=== PATIENT | female | born 2000 | race Caucasian/White ===

== ENCOUNTER 2025-01-19 15:12 | Outpatient (REF) | payer OTHER, SELFPAY ==
[2025-01-19 15:28] LABS: MANUAL DIFF FLAG NO
[2025-01-19 16:28] LABS: Basophils Percent Auto 0.5 % (0-2); Eosinophils Absolute Auto 0.1 X10*3/uL (0.0-0.4); Eosinophils Percent Auto 0.9 % (0-4); Hematocrit 43.3 % (37.0-47.0); Hemoglobin 14.2 g/dl (12.0-16.0); Imm Gran Abs Auto 0.01 X10*3/uL (0.00-0.03); Imm Gran Pct Auto 0.2 % (0.0-0.4); Lymphocytes Absolute Auto 1.9 X10*3/uL (1.2-4.9); Lymphocytes Percent Auto 32.9 % (20-40); Mean Corpuscular HGB Conc 32.8 g/dl (31.0-35.0); Mean Corpuscular Hemoglobin 30.7 pg (27.0-33.0); Mean Corpuscular Volume 93.7 fL (80.0-98.0); Mean Platelet Volume 9.2 fL (9.4-12.3); Monocytes Absolute Auto 0.5 X10*3/uL (0.1-1.2); Monocytes Percent Auto 9.3 % (2-11); Neutrophils Absolute Auto 3.3 x10*3/uL (2.0-8.3); Neutrophils Percent Auto 56.2 % (45-73); Platelet Count 304 X10*3/uL (160-400); Red Blood Count 4.62 X10*6/uL (4.20-5.50); Red Cell Distribution Width 12.9 % (11.0-16.0); White Blood Count 5.8 X10*3/uL (4.8-10.8)
--- OUTSIDE RECORDS SUMMARY | 2025-01-19 16:28 | XMS_ITS | Encounter Summary ---
Author Organization [facility] Address [address] [place] [address] Phone Care Team Providers Care Hub Lead Name Role Phone Unavailable Primary Care Provider Unavailabl e Encounter Details Date Type Department Care Team (Late st Contact Info) Description 09/15/2013 Documentation [facility] [place] [facility] [place] [address] Family Medicine, Physician [address] [place] [address] Social History Tobacco Use Types Packs/Day Years Used Date Smoking Tobacco: Never Assessed Comments Unknown Sex and Gender Information Value Date Recorded Sex Assigned at Not on file Legal Sex Female 5:22 PM EDT Gender Identity Not on file Sexual Orientation Not on file documented as of this encounter Plan of Treatment Not on file documented as of this encounter Visit Diagnoses Not on filedocumented in this encounter
--- OUTSIDE RECORDS SUMMARY | 2025-01-19 16:28 | XMS_ITS | Encounter Summary ---
Author Organization [facility] Address [address] [place] [address] Phone Care Team Providers Care Life Enrichment Assistant Name Role Phone Unavailable Primary Care Provider Unavailabl e Encounter Details Date Type Department Care Team (Late st Contact Info) Description 09/21/2015 Documentation [facility] [place] [address] Family Medicine, Physician [address] [place] [address] Social History Tobacco Use Types Packs/Day Years [...]
--- OUTSIDE RECORDS SUMMARY | 2025-01-19 16:28 | XMS_ITS | Encounter Summary ---
Author Organization [facility] Address [address] [place] [address] Phone Care Team Providers Care Direct Of Real Estate Name Role Phone Unavailable Primary Care Provider Unavailabl e Encounter Details Date Type Department Care Team (Late st Contact Info) Description 09/28/2013 Documentation [facility] [place] Medicine [facility] [place] [address] Family Medicine, Physician [address] [place] [address] Social History Tobacco Use Types Packs/Day Years [...]
--- OUTSIDE RECORDS SUMMARY | 2025-01-19 16:28 | XMS_ITS | Encounter Summary ---
Author Organization [facility] Address [address] [place] [address] Phone Care Team Providers Care Dipper Clock And Watch Hands Name Role Phone Unavailable Primary Care Provider Unavailabl e Encounter Details Date Type Department Care Team (Late st Contact Info) Description 10/01/2012 Documentation [facility] [place] [facility] [place] [address] Family Medicine, Physician [address] [place] [address] Social History Tobacco Use Types Packs/Day Years [...]
--- OUTSIDE RECORDS SUMMARY | 2025-01-19 16:28 | XMS_ITS | Clinical Summary ---
Author Organization [facility] Address [address] [place] [address] Phone Care Team Providers Care Facilities Planner Name Role Phone Unavailable Primary Care Provider Unavailabl e Allergies No known active allergies Medications adapalene 0.3 % gel APPLY PEA-SIZED AMOUNT TO ENTIRE FACE AT BEDTIME, ALTERNATE W/ 0.1% EVERY OTHER NIGHT X 2 WKS 3 7 Active cetirizine (ZYRTEC ALLERGY) 10 MG tablet Take by mouth. 3 Active melatonin tablet Take by mouth. Active albuterol HFA 108 (90 Base) MCG/ACT inhalerIndication s:Mild intermittent asthma without complication Inhale 2 puffs every 4 (four) hours as needed for wheezing or shortness of breath. 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 She is doing well on larissia Assessment & Plan (09/24/2018 4:02 PM EST): Refilled vienva for the year Assessment & Plan (09/14/2017 9:43 AM EST): control pills reviewed at length- start orsythia saturday start discussed stressed need to take pill every day same time common and serious possible side effects reviewed safe sex counseling discussed Low risk teen recheck in 3-4 months Acne vulgaris 09/13/2017 Overview (09/13/2017): Sees Derm- has adapalene daily, uses clinda for spot tx Mild intermittent asthma without complication Overview (11/04/2020): Has prn proair Off QVAR 80 since 2019: 1p twice a day in wintertime Assessment & Plan (10/03/2019 9:25 AM EST): Did not go back on her wintertime daily QVAR- I think she should do this RFs QVAR sent Assessment & Plan (09/24/2018 4:02 PM EST): Doing great; cont QVAR 80: 1p BID; annual recheck OK as she has had no flares this past year Assessment & Plan (01/29/2018 4:33 PM EDT): QVAR refilled Assessment & Plan (12/25/2017 11:48 AM EDT): She is currently on QVAR 2p BID sec to URI and will stay on that until her cough is resolved at last a month; then could dec back to 1p BID; asthma recheck in SEPT 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 Was DCed from Dr. Pinzon since she is doing well- last seen 2013? Assessment & Plan (01/29/2018 4:35 PM EDT): Will check ESR given her hx; her arthritis has been quiet for several years now Migraine without aura and wi thout status migrainosus, not intractable 01/30/2010 Overview (09/24/2018): migraine dx- maxalt prn order; Saw Dr. Rapp; F/U prn now Assessment & Plan (09/24/2018 3:53 PM EST): No longer needing maxalt Allergic rhinitis 01/30/2010 Overview (12/16/2017): zyrtec all the time. Zyrte daily Immunizations Immunization Administration Dates Next Due DTaP 5 06/09/2003, 1,1999,08/21,1999 H1N1 07/07/2009 HPV, Quadrivalent 03/04/2012,11/01/2011,08/31/20 11 Hep A, ped/adol 06/06/2015,09/10/2014 Hep B, ped/adol 04/19/2000,01/19/2000,1999 Hib (PRP-T) 07/22/2000, 0,1999,06/19 IPV 06/09/2003, 1,1999,08/21,1999 Influenza Split 06/02/2012,07/19/2011,07/07/2010 Influenza, injectable, quadrivalent 06/28/2016 Influenza, injectable, quadr ivalent, preservative free 08/20/2019,09/24/2018,06/12/2017,06/06 Influenza, injectable, trivalent 009,06/14/2008,09/22/2007,08/22 Influenza, intranasal, quadrivalent 07/10/2014,1 MMR 06/09/2003,04/19/2000 Meningococcal B Trumenba 05/06/2020,10/02/2019 Meningococcal Conj (Menactra) MCV4P 09/10/2016,1 11/01/2010 Pneumococcal Conjugate 07/22/2000,04/19/2000 Td (adult) (MBL), 2 Lf tetan us toxoid, PF, adsorbed 12/29/2009 Tdap 03/04/2012 Varicella 06/14/2008,04/19/2000 Family History Medical History Relation Name Comments Asthma Brother Maikel Asthma Father Dami Heart attack Father Dami Hyperlipidemia Father Dami Hypertension Father Dami Alzheimer's disease Maternal Grandfather Alzheimer's disease Maternal Grandmother Hyperlipidemia Mother Kassandra Hypertension Mother Kassandra Stroke Paternal Grandfather Cancer Paternal Grandmother Relation Name Status Comments Brother Maikel Alive Father Dami Alive Father: Myocard ial infarction 49y Maternal Grandfather Maternal Grandmother Materna l grandmother: Cancer, breast Mother Kassandra Alive Mother: colitis Other Family history of Asthma, No family history of Sudden /CA under age 55, No family history of Scoliosis, Family history of Migraines, No family history of ADD/ADHD, Family history of Cardiovascular disease, No family history of Developmental dislocation of hip, No family history of Obesity, No family history of *Thrombophilia, No family history of Autism, No family history of Deafness, Family history of Stroke, Family history of Hyperlipidemia, Family history of Elevated cholesterol, No family history of Strabismus/amblyopia, No family history of Diabetes mellitus Paternal Grandfather Paternal Grandmother Social History Tobacco Use Types Packs/Day Years Used Date Smoking Tobacco: Never Smokeless Tobacco: Never Comments:Never smoker Alcohol Use Standard Drinks/Week Comments No 0 (1 standard drink = 0.6 oz pur e alcohol) Hunger/Food Answer Date Recorded In the last 12 months, did y ou or your family ever eat less than you felt you should because there wasn't enough money for food? No 11/04/2020 Stable Housing Answer Date Recorded Are you worried that in the next 2 months you may not have stable housing? No 11/04/2020 Transportation Concerns Answer Date Rec orded In the last 12 months, have you or your family ever had to go without healthcare because you didn't have a way to get there? No 11/04/2020 Hazards in Home Answer Date Recorded Think about the place you li ve. Do you have problems with any of the following? Pests (mice or roaches), mold, no/not working smoke detectors, water leaks, no window guards. No 2020 Financing Utilities Answer Date Recorde d In the last 12 months, has t he electric, gas, oil, or water company threatened to shut off your services in your home? No 11/04/2020 Safety at Home Answer Date Recorded Are you or your family worried about feeling saf e in your home? No 11/04/2020 Outside Support Answer Date Recorded Do you feel that you need mo re support from other people or programs to help you care for yourself or your family? No 11/04/2020 Understanding Health Concerns Answer Da te Recorded Do you need help understandi ng your or your child's healthcare needs (diagnosis, medications, plan, etc.)? No 11/04/2020 Financing Health Concerns Answer Date R ecorded In the last 12 months, was t here a time when your child needed to see a doctor or get medications or supplies but could not because of cost? No 11/04/2020 Missing School or Work Answer Date Anup rded Did you or your child miss s chool or work because of a health problem that could have been avoided? No 11/04/2020 Comments No Sex and Gender Information Value Date Recorded Sex Assigned at Not on file Legal Sex Female 5:22 PM EDT Gender Identity Not on file Sexual Orientation Not on file Last Filed Vital Signs Vital Sign Reading Time Taken Comments Blood Pressure 111/74 11/04/2020 8:47 AM EST Pulse 68 11/04/2020 8:47 AM EST Temperature 36.6 ??C (97.9 ??F) 11/04/2020 8:47 AM ES T Respiratory Rate 16 09/07/2019 4:23 PM EST Oxygen Saturation - - Inhaled Oxygen Concentration - - Weight 73.6 kg (162 lb 3.2 oz) 11/04/2020 8:47 A M EST Height 177.8 cm (5' 10 ) 11/04/2020 8:47 AM EST Body Mass Index 23.27 11/04/2020 8:47 AM EST Plan of Treatment Health Maintenance Due Date Last Done Comments DTaP,Tdap,and Td Vaccines (7 - Td or Tdap) 03/04/2022 03/04/2012, 12/29/2009, 06/09/2003, Additional history exists COVID-19 Vaccine (2023-2 5 season) 2024 04/30/2021 Hepatitis B Vaccines Completed 04/19/2000, 01/19/2000, 1999 HIB Vaccines Completed 07/22/2000, 10/17, 1999, Additional history exists Pneumococcal Vaccine Discontinued 07/22/2000, 04/19/20 00 IPV Vaccines Completed 06/09/2003, 03/2001, 1999, Additional history exists MMR Vaccines Completed 06/09/2003, 04/19/2000 Varicella Vaccines Completed 06/14/2008, 04/19/2000 HPV Vaccines Completed 03/04/2012, 10/17, 08/31/2011 Hepatitis A Vaccines Completed 06/06/2015, 09/10/20 14 Meningococcal Vaccine Completed 09/10/2016, 011 Influenza Vaccines Discontinued 08/20/2019, 0 09/24/2018, 06/12/2017, Additional history exists Men B Vaccine Completed 05/06/2020, 10/02/2019 Procedures * Due to [place] [employer] law, this organization might not be sharing sensitive test results. Procedure Name Priority Date/Time Associated Diagnosis Comments CHLAMYDIA AND GONORRHEA, AMPLIFIED Routine 11/04/2020 4:03 PM EST Special screening for bacterial and spirochetal disease from Last 3 Months or Most Recently Relevant to Health Maintenance Results * Due to [place] [employer] law, this organization might not be sharing sensitive test results. * Chlamydia and Gonorrhoea, Amplified (11/04/2020 4:03 PM EST) Chlamydia Trachomatis, DNA Probe NEGATIVE (NEG) [facility] Comment: No Chlamydia Trachomatis RNA detected in this patient's sample ? (REFERENCE RANGE/NORMAL VALUE: NOT DETECTED) ? Note: This test uses geographic analyst- mediated amplification method to detect rRNA from C. Trachomatis URINE GC AMP PROBE NEGATIVE (NEG) [facility] Comment: No Neisseria Gonorrhoeae RNA detected in this patient's sample ? (REFERENCE RANGE/NORMAL VALUE: NOT DETECTED) ? NOTE: This test uses geographic analyst-mediated amplification method to detect rRNA from N.Gonorrhoeae. A negative result does not preclude infection. In the case of a negative urine result, testing of an endocervical(female) or urethral (male) specimen is recommended if there is high clinical suspicion of infection. Due to very high sensitivity of Nucleic Acid Amplification Test, false positive results may occur. Therefore, specimen handling is extremely important. In patients in whom the disease is unlikely, additional sample for testing should be considered after an initial positive result. The performance characteristics of this test have not been evaluated in children. The Aptima Combo2 assay is not intended for the evaluation of suspected sexual abuse or for other medico-legal indications. The ordering provider should assess if the patient had consensual sex without risk of sexual abuse. Consult the [facility] if needed. Contact phone number . Therapeutic failure or success cannot be determined with the Aptima Combo2 assay since nucleic acid may persist following appropriate antimicrobial therapy. The Centers for Disease Control and Prevention (CDC) recommends confirmatory retesting using culture or a different nucleic acid amplification test when positive results occur, if indicated. Testing performed or reported by [facility], a Service of [facility], [address] [place] [address] Florentin Sterling MD, Field Marketing Director Urine 11/04/2020 4:03 PM EST 11/04/2020 4:06 PM EST us Agnes Rosado DO LAB MICROBIOLOGY - GENERAL ORDER TIFF Final Result [facility] from Last 3 Months or Most Recently Relevant to Health Maintenance Insurance [facility]
--- OUTSIDE RECORDS SUMMARY | 2025-01-19 16:28 | XMS_ITS | Encounter Summary ---
Author Organization [facility] Address [address] [place] [address] Phone Care Team Providers Care Geospatial Program Management Officer Name Role Phone Unavailable Primary Care Provider Unavailabl e Encounter Details Date Type Department Care Team (Late st Contact Info) Description 05/19/2014 Documentation [facility] [place] [address] Family Medicine, Physician [address] [place] [address] Social History Tobacco Use Types Packs/Day Years [...]
--- OUTSIDE RECORDS SUMMARY | 2025-01-19 16:28 | XMS_ITS | Data Portability ---
Author Organization [facility] [place], [facility] [place] Address [address] [place] [address] Assessment No assessment recorded. Plan of Treatment Reminders Order Date Submit Date Provider Last Modified By Organization Details Last Modified Time Details Appointments None recorded. Lab urinalysis, dipstick [address], [address], [address], [place], [address], 17:46:38 culture, urine + sensitivity 2021 022 [facility], [address] [place], [address], 14:41:30 test, urine [address], [address], [address], [place], [address], 17:12:27 Referral None recorded. Procedures None recorded. Surgeries None recorded. Imaging None recorded. Medication Orders Bactrim DS 800 mg-160 mg tablet [id number], [address], [place], [address], 17:11:25 Patient TargetsNo targets recorded. Patient Instructions Encounter Date Encounter Id Patient Instructions Last Modified By Organization Details Last Modified Time 11/21/2021 [id number] Urinary Tract Infection (UTI) in Women: Care Instructions [email or web address] Not available 11/21/2021 17:08:37 Reason for Referral None Reported. Results Created Date Observation Date Name Description Value Unit Range Abnormal Flag Note LastModifiedBy Organization Detail LastModifiedTime 11/22/19 22 11/21/2021 pregn angelica test, urine HCG negati ve Not Available [facility] [address], [place], [address], 11/21/2021 17:09:21 11/22/19 22 11/21/2021 urina lysis , dipst ick Leukocytes trace 15 Not Available [facility] [address], [place], [address], 11/21/2021 16:56:17 11/22/19 22 11/21/2021 urina lysis , dipst ick Nitrite negati ve Not Available [facility] [address], [place], [address], 11/21/2021 16:56:17 11/22/19 22 11/21/2021 urina lysis , dipst ick Urobilinogen normal Not Available [facility] [address], [place], [address], 11/21/2021 16:56:17 11/22/19 22 11/21/2021 urina lysis , dipst ick Protein negati ve Not Available [facility] [address], [place], [address], 11/21/2021 16:56:17 11/22/19 22 11/21/2021 urina lysis , dipst ick pH 6.0 Not Available [facility] [address], [place], [address], 11/21/2021 16:56:17 11/22/19 22 11/21/2021 urina lysis , dipst ick Blood hemoly zed 10 trace Not Available [place] [address], [place], [address], 11/21/2021 16:56:17 11/22/19 22 11/21/2021 urina lysis , dipst ick Specific [place] 1.010 Not Available [place] [address], [place], [address], 11/21/2021 16:56:17 11/22/19 22 11/21/2021 urina lysis , dipst ick Ketone negati ve Not Available [place] [address], [place], [address], 11/21/2021 16:56:17 11/22/19 22 11/21/2021 urina lysis , dipst ick Bilirubin negati ve Not Available [facility] [address], [place], [address], 11/21/2021 16:56:17 11/22/19 22 11/21/2021 urina lysis , dipst ick Glucose negati ve Not Available [facility] [address], [place], [address], 11/21/2021 16:56:17 11/22/19 22 11/21/2021 urina lysis , dipst ick Appearance clear Not Available [facility] [address], [place], [address], 11/21/2021 16:56:17 11/22/19 22 11/21/2021 urina lysis , dipst ick Color clear Not Available [facility] [address], [place], [address], 11/21/2021 16:56:17 Result Notes None recorded. Medical Equipment None Reported. Allergies No known drug allergies Medications Name Sig Start Date Stop Date Status Note LastModified by Organization Details LastModified Time tretinoin 0.05 % topical cream APPLY A PEA-SIZED AMOUNT TO THE FACE, ALTERNATE WITH DIFFERIN CREAM EVERY OTHER DAY active Not Available Not Available No t Available sulfamethoxa zole 800 mg-trimethop rim 160 mg tablet TAKE 1 TABLET BY MOUTH EVERY 12 HOURS FOR 7 DAYS active Not Available Not Available N ot Available benzonatate 100 mg capsule TAKE 1 CAPSULE BY MOUTH 3 TIMES A DAY FOR 7 DAYS active Not Available Not Available N ot Available mometasone 0.1 % topical ointment PLEASE SEE ATTACHED FOR DETAILED DIRECTIONS active Not Available Not Available N ot Available albuterol sulfate HFA 90 mcg/actuatio n aerosol inhaler USE 1 PUFF NEEDED EVERY 4 HOURS FOR 7 DAYS active Not Available Not Available No t Available amoxicillin 875 mg-potassium clavulanate 125 mg tablet TAKE 1 TABLET BY MOUTH EVERY 12 HOURS FOR 10 DAYS active Not Available Not Available Not Available nitrofuranto in monohydrate/ macrocrystal s 100 mg capsule TAKE 1 CAPSULE TWICE A DAY active Not Available Not Available Not Available melatonin active Not Available Not Nadege ilable Not Available clindamycin 1.2 % (1 % base)-benzoy l peroxide 5 % topical gel APPLY THIN LAYER TO FACE ONCE DAILY active Not Available Not Available No t Available adapalene 0.3 % topical gel PLEASE SEE ATTACHED FOR DETAILED DIRECTIONS active Not Available Not Available N ot Available Larissia 0.1 mg-20 mcg tablet TAKE 1 TABLET BY MOUTH EVERY DAY active Not Available Not Available No t Available Larissia active Not Available Not Avai lable Not Available Vitals Date Recorded Body temperature Heart rate Oxygen saturation Oxygen saturation in Arterial blood by Pulse oximetry Respiratory rate Systolic blood pressure Diastolic blood pressure Provider Name and Address Organization Details Last Updated DateTime 2 98.6 [degF] 80 /min 98 % 98 % 14 /min 111 mm[Hg] 76 mm[Hg] Ana M Galeana [facility]-[place] /[place] 2 16:53:31 Social History Question Answer Notes LastModified by Organizat ion Details LastModified Time Tobacco Smoking Status Never Smoker Ana M Galeana [place], [facility]/[place]/ [place] 11/21/2021 16:48:11 What Is Your Level Of Alcohol Consumption? Occasional [email or web address] Information not available 11/21/2021 Sex: Unknown Functional Status None recorded. Mental Status None recorded. Family History Relationship Description Onset Age of this Age Resolved Age Notes LastModified by Organization Details LastModified Time Father Heart disease [email or web address] Not available 2021 16:47:33 Notes:FamilyHistoryDetails: Medical History No medical history recorded. Gynecological History Statement/Question Response LMP Approximate Obstetrics History GPAL:G 0 P 0 0 0 0 Past Encounters Encounter ID Performer Location Encounter Start Date Encounter Closed Date Diagnosis/Indication Diagnosis SNOMED-CT Code Diagnosis ICD10 Code Diagnosis Note [id number] Rubi Hays NP [facility] [place] [address] [place] [address] 11/21/2021 16:09:26 11/29/2021 09:12:50 Acute urinary tract infection 057741582 N39.0 Health Concerns Section Related Observation LastModified by Organization Detai ls LastModified Time None Recorded Concern Status LastModified by Organization Details LastModified Time None Recorded Advance Directives Directive None Recorded Payers Encounter Date Sequence Insurance Name Policy Number Policy Palencia Covered Member ID Palencia Member ID Guarantor Name 11/21/2021 1 [facility]: [facility] [place] [place] Prema Mays [id number] Prema Mays Notes Date Note Type Note Provider Name and Address Organization Details Recorded Time 11/21/2021 text/html 21 yr old female , here with C/O urinary freq/urgency.NO dysuria or vaginal D/C or bleed.NO GI complaintsNo F/S/C. Rubi Hays NP [address], [place], [place], [address], [facility] 11/21/2021 17:16:21 OBGyn Episode No OBEpisode recorded.
--- OUTSIDE RECORDS SUMMARY | 2025-01-19 16:28 | XMS_ITS | Encounter Summary ---
Author Organization [facility] Address [address] [place] [address] Phone Care Team Providers Care Phototypesetting Equipment Monitor Name Role Phone Unavailable Primary Care Provider Unavailabl e Reason for Visit * Reason Comments Med Refill Encounter Details Date Type Department Care Team (Late st Contact Info) Description 06/24/2021 Refill [facility] [place] [address] [place] [address] Agnes Rosado, [address] [place] [address] Menstrual disorder Social History Tobacco Use Types Packs/Day Years [...] on file documented as of this encounter Miscellaneous Notes * Telephone Encounter - Janelle Bourne MA - 06/28/2021 11:51 AM EDT Left detailed VM on pt's identified VM * Telephone Encounter - Agnes Rosado DO - 06/28/2021 11:43 AM EDT Call pt- remind her that she should be seeing OUTPATIENT INTERVIEWING CLERK and needs to book appt LING. I will refill OCP for 3mo. * Telephone Encounter - Madelyn Haro LPN - 06/26/2021 11:35 AM EDT Refill request for OCP's. Last PE 11/04/20. (did turn 21)/ISA documented in this encounter Plan of Treatment Not on file documented as of this encounter Visit Diagnoses Diagnosis Menstrual disorder documented in this encounter
--- OUTSIDE RECORDS SUMMARY | 2025-01-19 16:28 | XMS_ITS | Encounter Summary ---
Author Organization [facility] Address [address] [place] [address] Phone Care Team Providers Care Systems Program Manager Name Role Phone Unavailable Primary Care Provider Unavailabl e Reason for Visit * Reason Comments Med Refill Encounter Details Date Type Department Care Team (Late st Contact Info) Description 09/22/2021 Refill [facility] [place] [address] [place] [address] Agnes Rosado, [address] [place] [address] Menstrual disorder Social History Tobacco Use Types [...]
--- OUTSIDE RECORDS SUMMARY | 2025-01-19 16:28 | XMS_ITS | Encounter Summary ---
Author Organization [facility] Address [address] [place] [address] Phone Care Team Providers Care Supervisor Personnel Clerks Name Role Phone Unavailable Primary Care Provider Unavailabl e Encounter Details Date Type Department Care Team (Late st Contact Info) Description 11/03/2014 Documentation [facility] [place] [facility] [place] [address] Family Medicine, Physician [facility] [place] [address] Social History Tobacco Use Types Packs/Day Years [...]
--- OUTSIDE RECORDS SUMMARY | 2025-01-19 16:29 | XMS_ITS | Encounter Summary ---
Author Organization [facility] Address [address] [place] [address] Phone Care Team Providers Care Quality Assurance Monitor Chassis Name Role Phone Unavailable Primary Care Provider Unavailabl e Encounter Details Date Type Department Care Team (Late st Contact Info) Description 05/02/2017 Conversion Encounter [facility] - [address] [address] Social History Tobacco Use Types Packs/Day Years Used Date Smoking Tobacco: Never Comments:Never smoker Comments Unknown Sex and Gender Information Value Date Recorded Sex Assigned at Not on file Legal Sex Female 5:22 PM EDT Gender Identity Not on file Sexual Orientation Not on file documented as of this encounter Plan of Treatment Not on file documented as of this encounter Visit Diagnoses Not on filedocumented in this encounter
--- OUTSIDE RECORDS SUMMARY | 2025-01-19 16:29 | XMS_ITS | Encounter Summary ---
Author Organization [facility] Address [address] [place] [address] Phone Care Team Providers Care Hydraulic Modeling Engineer Name Role Phone Unavailable Primary Care Provider Unavailabl e Encounter Details Date Type Department Care Team (Late st Contact Info) Description 09/20/2016 Documentation [facility] [place] [address] Family Medicine, Physician [place] [address] Social History Tobacco Use Types Packs/Day Years [...]
--- OUTSIDE RECORDS SUMMARY | 2025-01-19 16:29 | XMS_ITS | Encounter Summary ---
Author Organization [facility] Address [address] [place] [address] Phone Care Team Providers Care Electronic Communications Technician Name Role Phone Unavailable Primary Care Provider Unavailabl e Encounter Details Date Type Department Care Team (Late st Contact Info) Description 01/08/2017 Documentation [facility] [place] [facility] [place] [address] Family Medicine, Physician [address] [place] [address] Social History Tobacco Use Types Packs/Day Years [...]
--- OUTSIDE RECORDS SUMMARY | 2025-01-19 16:29 | XMS_ITS | Encounter Summary ---
Author Organization [facility] Address [address] [place] [address] Phone Care Team Providers Care Web Marketing Analyst Name Role Phone Unavailable Primary Care Provider Unavailabl e Encounter Details Date Type Department Care Team (Late st Contact Info) Description 07/13/2011 Documentation [facility] [place] [address] [place] [address] Family Medicine, Physician [address] [place] [address] Social History Tobacco Use Types Packs/Day Years [...]
--- OUTSIDE RECORDS SUMMARY | 2025-01-19 16:29 | XMS_ITS | Encounter Summary ---
Author Organization [facility] Address [address] [place] [address] Phone Care Team Providers Care Sales And Marketing Intern Name Role Phone Unavailable Primary Care Provider Unavailabl e Encounter Details Date Type Department Care Team (Late st Contact Info) Description 02/17/2010 Documentation [facility] Family Medicine [facility] [place] [address] Family Medicine, Physician [address] [place] [address] Social History Tobacco Use Types Packs/Day Years [...]
--- OUTSIDE RECORDS SUMMARY | 2025-01-19 16:29 | XMS_ITS | Encounter Summary ---
Author Organization [facility] Address [address] [place] [address] Phone Care Team Providers Care Instant Potato Processing Supervisor Name Role Phone Unavailable Primary Care Provider Unavailabl e Encounter Details Date Type Department Care Team (Late st Contact Info) Description 11/08/2016 Documentation [facility] [place] [facility] [place] [address] Family Medicine, Physician [address] [place] [address] Social History Tobacco Use Types Packs/Day Years [...]
--- OUTSIDE RECORDS SUMMARY | 2025-01-19 16:29 | XMS_ITS | Encounter Summary ---
Author Organization [facility] Address [address] [place] [address] Phone Care Team Providers Care Software Engineer Intern Name Role Phone Unavailable Primary Care Provider Unavailabl e Encounter Details Date Type Department Care Team (Late st Contact Info) Description 08/29/2012 Documentation [facility] [place] [facility] [place] [address] Family Medicine, Physician [address] [place] [address] Social History Tobacco Use Types Packs/Day Years [...]
--- OUTSIDE RECORDS SUMMARY | 2025-01-19 16:29 | XMS_ITS | Encounter Summary ---
Author Organization [facility] Address [address] [place] [address] Phone Care Team Providers Care Sports Broadcasting Internship Name Role Phone Unavailable Primary Care Provider Unavailabl e Reason for Visit * Reason Comments Med Refill Encounter Details Date Type Department Care Team (Late st Contact Info) Description 01/01/2018 Refill [facility] [place] [address] [place] [address] Agnes Rosado, DO [address] [place] [address] Social History Tobacco Use Types Packs/Day Years Used Date Smoking Tobacco: Never Smokeless Tobacco: Never Comments:Never smoker Alcohol Use Standard Drinks/Week Comments No 0 (1 standard drink = 0.6 oz pur e alcohol) Comments No Sex and Gender Information Value Date Recorded Sex Assigned at Not on file Legal Sex Female 5:22 PM EDT Gender Identity Not on file Sexual Orientation Not on file documented as of this encounter Plan of Treatment Not on file documented as of this encounter Visit Diagnoses Not on filedocumented in this encounter
--- OUTSIDE RECORDS SUMMARY | 2025-01-19 16:29 | XMS_ITS | Encounter Summary ---
Author Organization [facility] Address [address] [place] [address] Phone Care Team Providers Care Hoop Rolls Operator Name Role Phone Unavailable Primary Care Provider Unavailabl e Encounter Details Date Type Department Care Team (Late st Contact Info) Description 02/20/2011 Documentation [facility] [place] [address] Family Medicine, Physician [address] [place] [address] Social History Tobacco Use Types Packs/Day Years [...]
--- OUTSIDE RECORDS SUMMARY | 2025-01-19 16:29 | XMS_ITS | Patient Health Record ---
Author Organization [facility] Address [address] [place] [address] Care Team Providers Care Sucker Machine Operator Name Role Phone Silvana Macy RODRIGUEZ Primary Care Provider Otoniel Jonh [phone] Allergies No Known Allergies Reason For Referral No Information Medications Medication SIG (Take, Route, Fr equency, Duration) Notes Start Date End Date Status Probiotic Active Vienva Active Melatonin Active Xyzal Active Adapalene Active Flonase Sensimist Ac tive Social History Tobacco Use: Social History Observation Description Date Details (start date - stop date) Never Smoker NA - NA Tobacco Control (Standard) Question Answer Notes Tobacco use: Nonsmoker AUDIT-C (Standard) Question Answer Notes Did you have a drink contain ing alcohol in the past year? Yes How often did you have a dri nk containing alcohol in the past year? Never (0 point) How many drinks did you have on a typical day when you were drinking in the past year? 1 or 2 drinks (0 point) How often did you have six o r more drinks on one occasion in the past year? Never (0 point) Points 0 Interpretation Negative Problems Problem Type SNOMED Code ICD Code Onset Dates Problem Status W/U Status Risk Notes Problem Epigastric pain (18461771) Epigastric abdominal pain (R10.13) Active confirmed Problem Generalized abdominal pain (615284713) Abdominal pain, acute, generalized (R10.84) Active confirmed Vital Signs Blood pressure diastolic 88 mm Hg 01/19/2025 Height 70 in 01/19/2025 Blood pressure systolic 111 mm Hg 01/19/2025 Weight 156 lbs 01/19/2025 BMI 22.38 kg/m2 01/19/2025 Encounters Encounter Location Date Provider Diagnosis [facility] [address] [place] [address] 01/19/2025 Otoniel Sofia Abdominal pain, acut e, generalized R10.84 ; Epigastric abdominal pain R10.13 ; Irregular bowel habits R19.8 ; Family history of colon cancer Z80.0 ; Abdominal bloating R14.0 and Flatulence R14.3 Assessments Encounter Date Diagnosis (ICD Code) Assessment Notes Treatment Notes Treatment Clinical Notes Section Notes 01/19/2025 Epigastric abdominal pain (ICD-10 - R10.13) 01/19/2025 Abdominal pain, acute, generalized (ICD-10 - R10.84) Try over the counter Simethicone for gas and bloating--Gas-X I will send over a prescription for an antispasmodic Speak with mastic worker to make sure you're not taking in too much fiber 01/19/2025 Irregular bowel habits (ICD-10 - R19.8) 01/19/2025 Family history of colon cancer (ICD-10 - Z80.0) 01/19/2025 Abdominal bloating (ICD-10 - R14.0) 01/19/2025 Flatulence (ICD-10 - R14.3) Plan Of Treatment Pending Test Test Name Order Date LIVER PROFILE 01/19/2025 CRP 01/19/2025 CBC w DIFF 01/19/2025 SED RATE (ESR) 01/19/2025 CELIAC PANEL #10 01/19/2025 Amylase 01/19/2025 Lipase 01/19/2025 TSH reflex Free T4 01/19/2025 US abdomen complete 01/19/2025 Next Appt Details Provider Name:Otoniel Sofia , 06/22/2025 01:20:00 PM, [address], [address], [place], [address], Insurance Providers Payer Name Payer Address Payer Phone Subscriber Number Group Number Insured Name Patient Relationship to Insured Coverage Start Date Coverage End Date [facility] [address] [place] [address] [phone] [id number] ISAI LIVINGSTON Self - patient is the insured 3 Medical (General) History Medical History History ICD Code Seasonal allergies Ssthma - mild Denies [place],DM,CVA,renal disease
--- OUTSIDE RECORDS SUMMARY | 2025-01-19 16:29 | XMS_ITS ---
Author Organization [facility] Address [address] [place] [address] Care Team Providers Care Power Nut Runner Operator Name Role Phone Silvana Macy RODRIGUEZ Primary Care Provider Otoniel John Unavailable [phone] Allergies No Known Allergies REASON FOR VISIT Patient presents today for H PYLORI, ABNORMAL STOOL STUDIES Medications Medication SIG (Take, Route, Fr equency, Duration) Notes Start Date End Date Status Vienva Active Melatonin Active Xyzal Active Adapalene Active Flonase Sensimist Ac tive Probiotic Active Social History Tobacco Use: Social History Observation [...] Problem Status W/U Status Risk Notes Problem Generalized abdominal pain (989883153) Abdominal pain, acute, generalized (R10.84) Active confirmed Problem Epigastric pain (52408141) Epigastric abdominal pain (R10.13) Active confirmed Vital Signs Blood pressure systolic 111 mm Hg 01/20/20 25 Blood pressure diastolic 88 mm Hg 025 Height 70 in 01/19/2025 Weight 156 lbs 01/19/2025 BMI 22.38 kg/m2 01/19/2025 Encounters Encounter Location Date Provider Diagnosis [facility] [address] [place] [address] 01/19/2025 Otoniel Sofia Abdominal pain, acut e, generalized R10.84 ; Epigastric abdominal pain R10.13 ; Irregular bowel habits R19.8 ; Family history of colon cancer Z80.0 ; Abdominal bloating R14.0 and Flatulence R14.3 Assessments Encounter Date Diagnosis (ICD Code) Assessment Notes Treatment Notes Treatment Clinical Notes Section Notes 01/19/2025 Abdominal pain, acute, generalized (ICD-10 - R10.84) Try over the counter Simethicone for gas and bloating--Gas-X I will send over a prescription for an antispasmodic Speak with film masker to make sure you're not taking in too much fiber 01/19/2025 Epigastric abdominal pain (ICD-10 - R10.13) 01/19/2025 Irregular bowel habits (ICD-10 - R19.8) 01/19/2025 Family history of colon cancer (ICD-10 - Z80.0) 01/19/2025 Abdominal bloating (ICD-10 - R14.0) 01/19/2025 Flatulence (ICD-10 - R14.3) Plan Of Treatment Treatment Notes Assessment Notes Abdominal pain, acute, generalized Try over the counter Simethicone for gas and bloating--Gas-X I will send over a prescription for an antispasmodic Speak with film masker to make sure you're not taking in too much fiber Pending Test Test Name Order Date LIVER PROFILE 01/19/2025 CRP 01/19/2025 CBC w DIFF 01/19/2025 SED RATE (ESR) 01/19/2025 CELIAC PANEL #10 01/19/2025 Amylase 01/19/2025 Lipase 01/19/2025 TSH reflex Free T4 01/19/2025 US abdomen complete 01/19/2025 Next Appt Details Follow Up: Early 2024, Reason: Provider Name:Otoniel Sofia , 06/22/2025 01:20:00 PM, [address], [address], [place], [address], Progress Notes * MICHAEL LIVINGSTON:2000 (24 yo F)Acc No.[id number]:01/19/2025 Progress Notes Patient:ISAI HDEZ Provider:?Otoniel Sofia MD :2000???Age:24 Y???Sex:Female D ate:01/19/2025 Address:[address] [place] [address] [id number] Pcp:Macy Pina CNP Subjective: * Chief Complaints: * ???1. Patient presents today for H PYLORI, ABNORMAL STOOL STUDIES. * Medical History:?Seasonal al lergies, Ssthma - mild, Denies [place],DM,CVA,renal disease. * Surgical History:?Denies Pas t Surgical History. * Family History:?Father: leah bains, diagnosed with HTN (hypertension), Heart disease.?Mother: alive, diagnosed with HTN (hypertension), Colon polyps.? maternal grandmother rectal cancer. * Social History:?Tobacco Use:?Tobacco Control (Standard)?Tobacco use:?Nonsmoker.?Miscellaneous:?Marital status: single. Occupation: senior consultant. ???Drug/Alcohol:?AUDIT-C (Standard)?Did you have a drink containing alcohol in the past year??Yes,?How often did you have a drink containing alcohol in the past year??Never (0 point),?How many drinks did you have on a typical day when you were drinking in the past year??1 or 2 drinks (0 point),?How often did you have six or more drinks on one occasion in the past year??Never (0 point),?Points?0,?Interpretation?Negative.? * Medications:?Taking Probioti c , Taking Adapalene , Taking Flonase Sensimist , Taking Melatonin , Taking Xyzal , Taking Vienva , Medication List reviewed and reconciled with the patient * Allergies:?N.K.D.A. Objective: * Vitals:?Wt:156lbs, Ht:70in, BMI:22.38Index, BP:111/88mm Hg, Ht-cm: 177.8, Wt-k.76. Assessment: * Assessment: 1.?Abdominal pain, acute, ge neralized - R10.84 (Primary)???2.?Epigastric abdominal pain - R10.13???3.?Irregular bowel habits - R19.8???4.?Family history of colon cancer - Z80.0???5.?Abdominal bloating - R14.0???6.?Flatulence - R14.3??? Plan: * Treatment: * Notes: Try over the counter Simethicone for gas and bloating--Gas-X I will send over a prescription for an antispasmodic Speak with film masker to make sure you're not taking in too much fiber?? 2.?Epigastric abdominal pain?LAB: LIVER PROFILE ?LAB: CRP ?LAB: CBC w DIFF ?LAB: SED RATE (ESR) ?LAB: CELIAC PANEL #10 ?LAB: Amylase ?LAB: Lipase ?LAB: TSH reflex Free T4 ?Imaging: US abdomen complete* sched for 03/03/25 at 8:00 am [facility] [place]pt 2nd floorfasting 8 hrs prior * 3.?Irregular bowel habits?LAB: LIVER PROFILE ?LAB: CRP ?LAB: CBC w DIFF ?LAB: SED RATE (ESR) ?LAB: CELIAC PANEL #10 ?LAB: Amylase ?LAB: Lipase ?LAB: TSH reflex Free T44.?Abdominal bloating?LAB: LIVER PROFILE ?LAB: CRP ?LAB: CBC w DIFF ?LAB: SED RATE (ESR) ?LAB: CELIAC PANEL #10 ?LAB: Amylase ?LAB: Lipase ?LAB: TSH reflex Free T4 ?Imaging: US abdomen complete* sched for 03/03/25 at 8:00 am [facility] [place] 2nd floorfasting 8 hrs prior * 5.?Flatulence?LAB: LIVER PROFILE ?LAB: CRP ?LAB: CBC w DIFF ?LAB: SED RATE (ESR) ?LAB: CELIAC PANEL #10 ?LAB: Amylase ?LAB: Lipase ?LAB: TSH reflex Free T4 * Follow Up:?Early 2024 * * The named appointment provid er may or may not be the originator of this progress note, and it is not deemed complete until electronically signed by the appointment provider. Sign off status: Pending * Provider:?Otoniel Sofia MD Date:? 025 Generated for Ivet phipps/Greta/Mary Joitting on:?01/19/2025 04:28 PM EDT
--- OUTSIDE RECORDS SUMMARY | 2025-01-19 16:29 | XMS_ITS | Encounter Summary ---
Author Organization [facility] Address [address] [place] [address] Phone Care Team Providers Care City Designer Name Role Phone Unavailable Primary Care Provider Unavailabl e Encounter Details Date Type Department Care Team (Late st Contact Info) Description 11/23/2016 [place]ation [facility] [place] [facility] [place] [address] Family Medicine, Physician [address] [place] [address] Social History Tobacco Use Types Packs/Day Years [...]
[2025-01-19 17:06] LABS: Erythrocyte Sedimentation Rate 3 MM/HR (0-20)
[2025-01-19 18:24] LABS: Alanine Aminotransferase 26 U/L (0-31); Albumin Level 4.7 g/dL (3.5-5.0); Alkaline Phosphatase 51 U/L (39-117); Amylase 66 U/L (28-100); Aspartate Amino Transferase 22 U/L (5-31); Bilirubin Direct < 0.2 mg/dL (0.0-0.5); Bilirubin Total 0.2 mg/dL (0.0-1.0); C Reactive Protein 0.13 mg/dL (< or = 0.50); Lipase 26 U/L (8-78); Total Protein 7.2 g/dL (6.5-8.0)
[2025-01-19 18:29] LABS: TSH reflex Free T4 1.06 uIU/mL (0.32-4.0)
[2025-01-21 08:42] LABS: Immunoglobulin A 180 mg/dL (47-310); Transglutaminase IgA <1.0 U/mL
== END 2025-01-19 15:13 | disposition home or self-care (01) ==
LOC: HO.LAB 15:12
PROVIDERS: PCP Nurse Practitioner Family; Visit Provider Internal Medicine
DX: R10.84 Generalized abdominal pain (principal); R10.13 Epigastric pain; R19.8 Other specified symptoms and signs involving the digestive system and abdomen; R14.0 Abdominal distension (gaseous)
CPT/HCPCS: 36415; 80076; 82150; 82784; 83690; 84443; 85025; 85652; 86140; 86364

== ENCOUNTER 2025-03-03 07:53 | Outpatient (REF) | payer OTHER, SELFPAY ==
--- NOTE | ~2025-03-03 | US_ITS ---
CLINICAL HISTORY: ABD PAIN,EPIGASTRIC PAIN,ABDOMINAL PAIN AND BLOATING US abdomen complete with color Doppler Comparison: None Findings: The visualized pancreas, aorta, and inferior vena cava are unremarkable. Liver normal size and echotexture. Right lobe 16.4 cm length. No focal hepatic masses. Common duct 2.7 mm diameter. Physiologic distention of the gallbladder. No gallstones or sludge. No gallbladder wall thickening. No pericholecystic fluid. No sonographic Weiss sign. Right kidney normal size, 11.1 cm in length. Normal cortical width and echotexture. No solid or cystic renal masses. No nephrolithiasis. No hydronephrosis. Left kidney normal, 10.9 cm in length. Normal cortical width and echotexture. No solid or cystic renal masses. No nephrolithiasis. No hydronephrosis. Spleen measures 10.6 cm. No splenic masses. No ascites. No lymphadenopathy. Impression: 1. Normal abdominal ultrasound. This document has been electronically signed by: George Mon MD on 03/03/2025 09:21:27
--- OUTSIDE RECORDS SUMMARY | 2025-03-03 08:00 | XMS_ITS | Encounter Summary ---
Author Organization [facility] Address [address] [place] [address] Phone Care Team Providers Care Supervisor Shed Workers Name Role Phone Unavailable Primary Care Provider Unavailabl e Encounter Details Date Type Department Care Team (Late st Contact Info) Description 09/21/2015 Documentation [facility] Family [place] [address] Family Medicine, Physician [address] [place] [address] Social History Tobacco Use Types Packs/Day Years [...]
== END 2025-03-03 07:54 | disposition home or self-care (01) ==
LOC: HO.US 07:53
PROVIDERS: PCP Nurse Practitioner Family; Visit Provider Internal Medicine
DX: R10.84 Generalized abdominal pain (principal); R10.13 Epigastric pain
CPT/HCPCS: 76700

== ENCOUNTER → 2025-03-03 08:00 | Outpatient (BNV) | payer OTHER, SELFPAY | PROVIDERS: PCP Nurse Practitioner Family; Visit Provider Radiology Diagnostic Radiology | DX: R10.13 Epigastric pain (principal); R14.0 Abdominal distension (gaseous) | CPT/HCPCS: 76700 ==